=== PATIENT | female | born 1970 | race African-American/Black ===

== ENCOUNTER 2018-05-02 23:45 | Emergency (ER) | payer OTHER ==
[~2018-05-02] VITALS: Ht 162.6 cm; Wt 91.2 kg
[2018-05-02 23:55] VITALS: Ht 162.6 cm; Wt 91.2 kg
[2018-05-03 01:02] LABS: BASOPHIL % 0.3 % (0-2); PLATELET COUNT 201 x10^3mcL (130-400); RED CELL DISTRIBUTION WIDTH 13.3 % (11.5-14.5)
[2018-05-03 01:06] LABS: CALCIUM 7.5 mg/dL (8.5-10.1); CARBON DIOXIDE 22.2 mmol/L (21-32); CHLORIDE SERUM 107 mmol/L (98-107); CREATININE SERUM 0.9 mg/dL (0.6-1.0); GFR1 > 60 mL/min; GLUCOSE SERUM 95 mg/dL (74-106); POTASSIUM SERUM 3.5 mmol/L (3.5-5.1); SODIUM SERUM 139 mmol/L (136-145)
[2018-05-03 01:18] LABS: ALKALINE PHOSPHATASE 55 U/L (46-116); ALT/SGPT 67 U/L (14-59); AST/SGOT 41 U/L (15-37); BILIRUBIN TOTAL 0.4 mg/dL (0.20-1.00); TOTAL PROTEIN, SERUM 6.6 g/dL (6.4-8.2)
[2018-05-03 04:51] VITALS: BP 117/73
== END 2018-05-03 04:51 | disposition home or self-care (01) ==
LOC: ED 23:45
PROVIDERS: Emergency Medicine
DX: R19.7 Diarrhea, unspecified (principal); I10 Essential (primary) hypertension; Z88.8 Allergy status to other drugs, medicaments and biological substances
CPT/HCPCS: J2270; J7030